=== PATIENT | female | born 1990 | race Caucasian/White ===

== ENCOUNTER 2016-06-10 13:27 | Emergency (ER) | payer MEDICAID ==
[2016-06-10] MEDS ORDERED: ONDANSETRON HCL IV 4 MG/2 ML VIAL IVP ONE (13:59)
[2016-06-10] MEDS ORDERED: HYOSCYAMINE SULFATE ODT 0.125 MG TAB.SUBL SL ONE (13:59)
[2016-06-10] MEDS ORDERED: 0.9 % SODIUM CHLORIDE 1000ML 1,000 ML IV SCH (14:00)
--- NOTE | 2016-06-10 14:04 | Emergency Department Record ---
History of Present Illness - General Chief complaint: Vomiting Stated complaint: VOMITING SINCE THIS MORNING Time Seen by Provider: 06/10/16 13:59 Source: Patient Mode of Arrival: Ambulatory Limitations: No limitations - History of Present Illness Initial comments: 25 yo female presents to ED with a CC of nausea and vomiting symptoms that began this morning upon awakening. Patient denies fevers symptoms, but does reports mild epigastric discomfort. Patient reports several family members with similar symptoms, and patient denies health problems at her baseline. MD complaint: Nausea, Vomiting Onset/Timin -: Hour(s) Description of Vomiting: Bilious, Watery Associated Abdominal Pain: Yes Location: Epigastric Radiation: None Severity: Moderate Severity scale (1-10): 4 Quality: Cramping Consistency: Intermittent Improves with: None Worsens with: None Context: Sick contacts Associated Symptoms: Headaches, Nausea/vomiting - Related Data Previous Rx's Medication Instructions Recorded Ondansetron [Zofran Odt] 4 mg PO Q4H PRN #20 tab.rapdis 06/10/16 Allergies Allergy/AdvReac Type Severity Reaction Status Date / Time No Known Drug Allergies Allergy Verified 06/10/16 13:43 Travel Screening - Travel/Exposure Within Last 30 Days Have you traveled within the last 30 days?: No Review of Systems Constitutional: Denies: Fever, Malaise, Night sweats Eyes: Denies: Eye discharge, Vision change ENT: Denies: Congestion, Ear pain, Epistaxis Respiratory: Denies: Cough, Dyspnea Cardiovascular: Denies: Chest pain, Dyspnea on exertion Endocrine: Denies: Fatigue, Heat or cold intolerance Gastrointestinal: Reports: Nausea, Vomiting. Denies: Abdominal pain, Constipation Genitourinary: Denies: Dysuria, Frequency Musculoskeletal: Denies: Arthralgia, Back pain Skin: Denies: Bruising, Change in color Neurological: Reports: Headache. 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 in 2009) - RESPIRATORY Hx Respiratory Disorders: No - CARDIOVASCULAR Hx Cardio Disorders: No - NEURO Hx Neuro Disorders: No Hx Headaches: Yes (tension ) - GI Hx GI Disorders: No Hx Reflux: Yes - Hx Genitourinary Disorders: No Hx Kidney Stones: Yes (august 08 2013 with stent) Comment:: stents removed September 2013 - ENDOCRINE Hx Endocrine Disorders: No - MUSCULOSKELETAL Hx Musculoskeletal Disorders: No - PSYCH Hx Psych Problems: No - HEMATOLOGY/ONCOLOGY Hx Hematology/Oncology Disorders: No Family Medical History Any Significant Family History?: Yes Hx Cancer: Mother Hx Stroke: Grandparents Physical Exam - General General Appearance: Alert, Oriented x3, Cooperative, Mild distress Limitations: No limitations - Head Head exam: Atraumatic, Normocephalic, Normal inspection Head exam detail: negative: Abrasion, Contusion, Dozier's sign, General tenderness, Hematoma, Laceration - Eye Eye exam: Normal appearance. negative: Conjunctival injection, Periorbital swelling, Periorbital tenderness, Scleral icterus - ENT Ear exam: negative: Auricular hematoma, Auricular trauma Nasal Exam: negative: Active bleeding, Discharge, Dried blood, Foreign body Mouth exam: negative: Drooling, Laceration, Muffled voice, Tongue elevation - Neck Neck exam: Normal inspection. negative: Meningismus, Tenderness - Respiratory Respiratory exam: Normal lung sounds bilaterally. negative: Respiratory distress, Rhonchi, Stridor, Wheezes - Cardiovascular Cardiovascular Exam: Regular rate, Normal rhythm, Normal heart sounds - GI/Abdominal GI/Abdominal exam: Soft, Tenderness (mild TTP epigastric region, no rebound or guarding are present on exam). negative: Distended, Rebound, Rigid - Rectal Rectal exam: Deferred - exam: Deferred - Extremities Extremities exam: Normal inspection. negative: Calf tenderness, Pedal edema, Tenderness - Back Back exam: Reports: Normal inspection. Denies: CVA tenderness (R), CVA tenderness (L) - Neurological Neurological exam: Alert, Oriented X3 - Psychiatric Psychiatric exam: Normal affect, Normal mood - Skin Skin exam: Normal color. negative: Abrasion Type of lesion: negative: abrasion Course Vital Signs 06/10/16 13:38 Temperature 97.5 F L Pulse Rate 95 H Respiratory 20 Rate Blood Pressure 102/70 Pulse Ox 100 - Reevaluation(s) Reevaluation #1: 06/10/16 15:20 Patient up to the bathroom for UA sample, reports that her symptoms are significantly improved. Awaiting AU results to exclude infection, and will reassess. Reevaluation #2: 06/10/16 15:51 UA reviewed and is negative for infection. Patient reports that her symptoms are overall improved, no vomiting while in the ED, denies abdominal pain at this time and repeat abdominal examination is benign. Patient appears stable for discharge at this time. Medical Decision Making - Lab Data Result diagrams: 06/10/16 14:13 06/10/16 14:13 Disposition Disposition: Discharge Clinical Impression: Nausea & vomiting Qualifiers: Vomiting type: unspecified Vomiting Intractability: non-intractable Qualified Code(s): R11.2 - Nausea with vomiting, unspecified Disposition: Home, Self-Care Condition: (2) Stable Instructions: Acute Nausea and Vomiting (ED) Additional Instructions: Return to ED if your symptoms worsen or if you have any concerns. Zofran as directed. Follow-up with your family doctor in 3-5 days as directed. Prescriptions: Ondansetron [Zofran Odt] 4 mg PO Q4H PRN #20 tab.rapdis PRN Reason: Nausea/Vomiting Forms: Patient Portal Access Time of Disposition: 15:53
[2016-06-10 14:32] LABS: HEMATOCRIT 40.1 % (35.0-47.0); HEMOGLOBIN 13.5 gm/dl (11.6-16.0); MEAN CELL VOLUME 88.3 fl (81-97); MEAN CORPUSCULAR HEMOGLOBIN 29.7 pg (27-33); MEAN CORPUSCULAR HGB CONC 33.7 g/dl (32-36); MEAN PLATELET VOLUME 10.4 fl (7.4-10.4); PLATELET COUNT 303 K/uL (130-400); RED BLOOD COUNT 4.54 M/uL (3.80-5.40); RED CELL DISTRIBUTION WIDTH 12.8 % (11.5-14.5); WHITE BLOOD COUNT W/O DIFF 8.4 K/uL (4.2-12.2)
[2016-06-10 14:39] LABS: PLATELET ESTIMATE NORMAL (NORMAL)
[2016-06-10 14:44] LABS: ALB/GLOB RATIO 1.5 (1.1-1.8); ALBUMIN 4.6 gm/dL (3.5-5.0); ALKALINE PHOSPHATASE 72 U/L (38-126); ALT/SGPT 34 U/L (9-52); ANION GAP 15.2 (7-16); AST/SGOT 21 U/L (14-36); BILIRUBIN,TOTAL 0.99 mg/dL (0.2-1.3); BLOOD UREA NITROGEN 13 mg/dL (7-17); CARBON DIOXIDE 23.8 mmol/L (22-30); CREATININE 0.6 mg/dL (0.52-1.04); EST GLOMERULAR FILTRATION RATE > 60 ml/min; GLUCOSE,RANDOM 95 mg/dL (70-110); LIPASE 154 U/L (23-300); TOTAL PROTEIN 7.7 gm/dL (6.3-8.2)
[2016-06-10 15:42] LABS: URINE APPEARANCE CLEAR; URINE BILIRUBIN NEGATIVE (NEGATIVE); URINE BLOOD SMALL (NEGATIVE); URINE COLOR YELLOW; URINE GLUCOSE (UA) NEGATIVE (NEGATIVE); URINE KETONE 40 mg/dL (NEGATIVE); URINE LEUKOCYTE ESTERASE NEGATIVE (NEGATIVE); URINE NITRITE NEGATIVE (NEGATIVE); URINE PROTEIN NEGATIVE (NEGATIVE); URINE UROBILINOGEN 0.2 E.U./dL (0.20 - 1.00)
[2016-06-10 15:49] LABS: URINE WBC NONE SEEN (0-2/hpf)
[2016-06-10 15:50] LABS: HCG,QUALITATIVE URINE NEGATIVE (NEGATIVE); URINE BACTERIA NONE SEEN
== END 2016-06-10 16:07 | disposition home or self-care (01) ==
LOC: ER 13:27
DX: R11.2 Nausea with vomiting, unspecified (principal); R10.13 Epigastric pain; R51 Headache
CPT/HCPCS: 99284 ×2; 96374; 96361; 83690; 80053; 81001; 81025; 85027; J1980; J2405; J7030

== ENCOUNTER 2016-09-08 17:05 | Emergency (ER) | payer BC, MEDICAID ==
--- NOTE | 2016-09-08 18:10 | Emergency Department Record ---
History of Present Illness - General Chief complaint: Female Urogenital Problem Stated complaint: UTI Time Seen by Provider: 09/08/16 18:08 Source: Patient Mode of Arrival: Ambulatory Limitations: No limitations - History of Present Illness Initial comments: The patient is here due to a 4 day hx of dysuria. She denies any AP, nausea, vomiting, or any vaginal issues. The patient has had UTI's like this in the past and this feels the same. MD Complaint: Dysuria Onset/Timin -: Days(s) Severity: Mild, Moderate Severity scale (1-10): 4 Quality: Aching Consistency: Intermittent Worsens with: Urination LMP Date: 08/29/16 Gestational Age (wks) based on LMP: 1 - Related Data Previous Rx's Medication Instructions Recorded Nitrofurantoin [place] [Macrobid] 100 mg PO BID #10 capsule 09/08/16 Allergies Allergy/AdvReac Type Severity Reaction Status Date / Time No Known Drug Allergies Allergy Verified 09/08/16 18:00 Travel Screening - Travel/Exposure Within Last 30 Days Have you traveled within the last 30 days?: No - Travel/Exposure Within Last Year Have you traveled outside the [place] 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 procedure in 2009) - RESPIRATORY Hx Respiratory Disorders: No - CARDIOVASCULAR Hx Cardio Disorders: No - NEURO Hx Neuro Disorders: No Hx Headaches: Yes (tension ) - GI Hx GI Disorders: No Hx Reflux: Yes - Hx Genitourinary Disorders: No Hx Kidney Stones: Yes (august 08 2013 with stent) Comment:: stents removed September 2013 - ENDOCRINE Hx Endocrine Disorders: No - MUSCULOSKELETAL Hx Musculoskeletal Disorders: No - PSYCH Hx Psych Problems: No - HEMATOLOGY/ONCOLOGY Hx Hematology/Oncology Disorders: No Family Medical History Any Significant Family History?: Yes Family Hx Comment (NOT TO BE USED IN PLACE OF ITEMS BELOW): unsure Hx Cancer: Mother Hx Stroke: Grandparents Physical Exam - General General Appearance: Alert, Cooperative, No acute distress - Head Head exam: Atraumatic, Normocephalic, Normal inspection - Eye Eye exam: Normal appearance, PERRL - Respiratory Respiratory exam: Normal lung sounds bilaterally. negative: Respiratory distress - Cardiovascular Cardiovascular Exam: Regular rate, Normal rhythm, Normal heart sounds - GI/Abdominal GI/Abdominal exam: Soft, Normal bowel sounds, Other. negative: Rebound, Rigid, Tenderness - Back Back exam: Denies: CVA tenderness (R), CVA tenderness (L) - Neurological Neurological exam: Alert, Normal gait, Oriented X3, Reflexes normal Course Vital Signs 09/08/16 17:55 Temperature 97.7 F Pulse Rate 83 Respiratory 16 Rate Blood Pressure 110/69 Pulse Ox 99 Disposition Disposition: Discharge Clinical Impression: Cystitis Disposition: Home, Self-Care Condition: (1) Good Instructions: Urinary Tract Infection in Women (ED) Additional Instructions: Please drink plenty of fluids. Take the Macrobid as directed. Please see your PCP for recheck if not better in 3 days. Return to the ER if worse. Prescriptions: Nitrofurantoin [place] [Macrobid] 100 mg PO BID #10 capsule Forms: Patient Portal Access Time of Disposition: 18:28
[2016-09-08 18:12] LABS: URINE APPEARANCE CLEAR; URINE BILIRUBIN NEGATIVE (NEGATIVE); URINE BLOOD SMALL (NEGATIVE); URINE COLOR YELLOW; URINE GLUCOSE (UA) NEGATIVE (NEGATIVE); URINE KETONE NEGATIVE (NEGATIVE); URINE LEUKOCYTE ESTERASE MODERATE (NEGATIVE); URINE NITRITE NEGATIVE (NEGATIVE); URINE PROTEIN NEGATIVE (NEGATIVE); URINE UROBILINOGEN 0.2 E.U./dL (0.20 - 1.00)
[2016-09-08 18:20] LABS: URINE BACTERIA 4+; URINE WBC >50 (0-2/hpf)
[2016-09-08] MEDS ORDERED: NITROFURANTOIN MONO 100 MG CAPSULE PO ONE (18:28)
== END 2016-09-08 18:39 | disposition home or self-care (01) ==
LOC: ER 17:05
DX: N30.01 Acute cystitis with hematuria (principal)
CPT/HCPCS: 81001; 81025; 99282

== ENCOUNTER 2017-03-16 15:22 | Emergency (ER) | payer BC, MEDICAID ==
--- NOTE | 2017-03-16 16:12 | Emergency Department Record ---
History of Present Illness - General Chief complaint: Cold Stated complaint: COLD/CHEST CONGESTION Time Seen by Provider: 03/16/17 16:11 Source: Patient Mode of Arrival: Ambulatory - History of Present Illness Initial comments: The patient states she has had 4 days of congestion greenish from her sinuses, with sinus pressure, and facial headache. She has had post nasal drip, and now has a cough which is also greenish. She denies history of pneumonia, asthma, smoking. She denies rashes, stiff neck, chest pain(except with coughing), abdominal pain or urinary symptoms. Onset/Timin -: Days(s) Severity: Moderate Improves with: None Worsens with: None Associated Symptoms: Cough, Rhinorrhea, Sore throat - Related Data Previous Rx's Medication Instructions Recorded Azithromycin [Zithromax] 500 mg PO DAILY #10 tab 03/16/17 Allergies Allergy/AdvReac Type Severity Reaction Status Date / Time No Known Drug Allergies Allergy Verified 03/16/17 15:56 Travel Screening - Travel/Exposure Within Last 30 Days Have you traveled within the last 30 days?: No - Travel/Exposure Within Last Year Have you traveled outside the [place] in the last year?: No - Additonal Travel Details Have you been exposed to anyone with a communicable illness?: No - Travel Symptoms Symptom Screening: None Review of Systems Reviewed: No additional complaints except as noted below Constitutional: Reports: As per HPI. Denies: Chills, Fever, Malaise, Night sweats, Weakness, Weight change Eyes: Reports: As per HPI. Denies: Eye discharge, Eye pain, Photophobia, Vision change ENT: Reports: As per HPI. Denies: Congestion, Dental pain, Ear pain, Epistaxis , Hearing loss, Throat pain Respiratory: Reports: As per HPI. Denies: Cough, Dyspnea, Hemoptysis, Stridor, Wheezes Cardiovascular: Reports: As per HPI. Denies: Arrhythmia, Chest pain, Dyspnea on exertion, Edema, Murmurs, Orthopnea, Palpitations, Paroxysmal nocturnal dyspnea, Rheumatic Fever, Syncope Endocrine: Reports: As per HPI. Denies: Fatigue, Heat or cold intolerance, Polydipsia, Polyuria Gastrointestinal: Reports: As per HPI. Denies: Abdominal pain, Constipation, Diarrhea, Hematemesis, Hematochezia, Melena, Nausea, Vomiting Genitourinary: Reports: As per HPI. Denies: Abnormal menses, Discharge, Dyspareunia, Dysuria, Frequency, Hematuria, Incontinence, Retention, Urgency Musculoskeletal: Reports: As per HPI. Denies: Arthralgia, Back pain, Gout, Joint swelling, Myalgia, Neck pain Skin: Reports: As per HPI. Denies: Bruising, Change in color, Change in hair/ nails, Lesions, Pruritus, Rash Neurological: Reports: As per HPI. Denies: Abnormal gait, Confusion, Headache, Numbness, Paresthesias, Seizure, Tingling, Tremors, Vertigo, Weakness Psychiatric: Reports: As per HPI. Denies: Anxiety, Auditory hallucinations, Depression, Homicidal thoughts, Suicidal thoughts, Visual hallucinations Hematological/Lymphatic: Reports: As per HPI. 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) - RESPIRATORY Hx Respiratory Disorders: No - CARDIOVASCULAR Hx Cardio Disorders: No - NEURO Hx Neuro Disorders: No Hx Headaches: Yes (tension ) - GI Hx GI Disorders: No Hx Reflux: Yes - Hx Genitourinary Disorders: No Hx Kidney Stones: Yes (august 08 2013 with stent) Comment:: stents removed September 2013 - ENDOCRINE Hx Endocrine Disorders: No - MUSCULOSKELETAL Hx Musculoskeletal Disorders: No - PSYCH Hx Psych Problems: No - HEMATOLOGY/ONCOLOGY Hx Hematology/Oncology Disorders: No Family Medical History Any Significant Family History?: Yes Family Hx Comment (NOT TO BE USED IN PLACE OF ITEMS BELOW): unsure Hx Cancer: Mother Hx Stroke: Grandparents Physical Exam - General General Appearance: Alert, Oriented x3, Cooperative, No acute distress (raspy voice, congested) - Head Head exam: Normal inspection - Eye Eye exam: Normal appearance, PERRL, EOMI Pupils: Normal accommodation - ENT ENT exam: Normal exam, Mucous membranes moist, Normal external ear exam, Normal orophraynx, TM's normal bilaterally Ear exam: Normal external inspection. negative: External canal tenderness Nasal Exam: Normal inspection, Sinus tenderness. negative: Active bleeding, Discharge, Dried blood Mouth exam: Normal external inspection, Tongue normal Teeth exam: Normal inspection. negative: Dental caries Throat exam: Normal inspection. negative: Tonsillar erythema, Tonsillar exudate - Neck Neck exam: Normal inspection, Full ROM. negative: Lymphadenopathy, Meningismus , Tenderness - Respiratory Respiratory exam: Normal lung sounds bilaterally. negative: Respiratory distress - Cardiovascular Cardiovascular Exam: Regular rate, Normal rhythm, Normal heart sounds - GI/Abdominal GI/Abdominal exam: Soft, Normal bowel sounds. negative: Tenderness - Rectal Rectal exam: Deferred - exam: Deferred - Extremities Extremities exam: Normal inspection, Full ROM, Normal capillary refill. negative: Tenderness - Back Back exam: Reports: Normal inspection, Full ROM. Denies: Muscle spasm, Rash noted, Tenderness - Neurological Neurological exam: Alert, Normal gait, Oriented X3, Reflexes normal - Psychiatric Psychiatric exam: Normal affect, Normal mood - Skin Skin exam: Dry, Intact, Normal color, Warm Course Vital Signs 03/16/17 15:56 Temperature 99.2 F Pulse Rate 95 H Respiratory 18 Rate Blood Pressure 125/76 Pulse Ox 98 - Reevaluation(s) Reevaluation #1: Explained need for high dose and llonger duration of antibiotics. Patient understands. 03/16/17 16:51 Medical Decision Making - Management Options MDM Management: No Additional Work-up Planned Disposition Disposition: Discharge Clinical Impression: Sinusitis Qualifiers: Sinusitis location: pansinusitis Chronicity: acute Recurrence: not specified as recurrent Qualified Code(s): J01.40 - Acute pansinusitis, unspecified Disposition: Home, Self-Care Condition: (1) Good Instructions: Sinusitis (ED) Additional Instructions: Take antibiotics as directed with food until gone. tylenol or ibufrofen as directed as needed for fevers, pain. Off work tomorrow. Follow up [facility] PCP as needed. Prescriptions: Azithromycin [Zithromax] 500 mg PO DAILY #10 tab Quality - Quality Measures Quality Measures: N/A - Blood Pressure Screening Does Patient Have Any of the Following: No Blood Pressure Classification: Pre-Hypertensive BP Reading Systolic Measurement: 125 Diastolic Measurement: 76 Screening for High Blood Pressure: < Normal BP, F/U Not Required > [G8783]
== END 2017-03-16 16:40 | disposition home or self-care (01) ==
LOC: ER 15:22
DX: J01.40 Acute pansinusitis, unspecified (principal); R05 Cough
CPT/HCPCS: 99282

== ENCOUNTER 2017-07-18 08:10 | Emergency (ER) | payer BC, MEDICAID ==
[2017-07-18] MEDS ORDERED: 0.9 % SODIUM CHLORIDE 1,000 ML BAG IV ONE (08:19)
[2017-07-18] MEDS ORDERED: CLINDAMYCIN 150 MG CAP PO ONE (08:25)
--- NOTE | 2017-07-18 08:29 | Emergency Department Record ---
History of Present Illness - General Chief complaint: Abscess Stated complaint: SORE ON RIGHT BUTTOCK Time Seen by Provider: 07/18/17 08:19 Source: Patient Mode of Arrival: Ambulatory Limitations: No limitations - History of Present Illness Initial comments: The patient is here due to developing an infection to her L buttock. It started 3 days ago and now seems to be getting smaller but more painful. complaint: Abscess/boil Onset/Timin -: Days(s) Location: Buttocks Severity: Severe Severity scale (1-10): 9 Quality: Aching Consistency: Constant Improves with: None Worsens with: None Context: None Associated symptoms: Denies other symptoms Treatments Prior to Arrival: None - Related Data Home Medications Medication Instructions Recorded Confirmed Last Taken Propranolol HCl [Inderal Xl] 80 mg PO ASDIR 07/18/17 07/18/17 Unknown Previous Rx's Medication Instructions Recorded Clindamycin HCl [Cleocin HCl] 300 mg PO QID #28 capsule 07/18/17 Allergies Allergy/AdvReac Type Severity Reaction Status Date / Time No Known Drug Allergies Allergy Verified 07/18/17 08:15 Travel Screening - Travel/Exposure Within Last 30 Days Have you traveled within the last 30 days?: No Review of Systems Constitutional: Denies: Chills, Fever Past Medical History - SOCIAL HISTORY Smoking Status: Never smoker Alcohol Use: None 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 procedure in 2009) - RESPIRATORY Hx Respiratory Disorders: No - CARDIOVASCULAR Hx Cardio Disorders: No - NEURO Hx Neuro Disorders: No Hx Headaches: Yes (tension ) - GI Hx GI Disorders: No Hx Reflux: Yes - Hx Genitourinary Disorders: No Hx Kidney Stones: Yes (august 08 2013 with stent) Comment:: stents removed September 2013 - ENDOCRINE Hx Endocrine Disorders: No - MUSCULOSKELETAL Hx Musculoskeletal Disorders: No - PSYCH Hx Psych Problems: Yes Hx Anxiety: Yes - HEMATOLOGY/ONCOLOGY Hx Hematology/Oncology Disorders: No Family Medical History Any Significant Family History?: Yes Family Hx Comment (NOT TO BE USED IN PLACE OF ITEMS BELOW): unsure Hx Cancer: Mother Hx Stroke: Grandparents Physical Exam - General General Appearance: Alert, Cooperative, No acute distress - Head Head exam: Atraumatic, Normocephalic - Eye Eye exam: Normal appearance, PERRL - Rectal Rectal exam: Tenderness (There is a 3x3 cm area of erythema and induration to the R buttock. The area is very hard and NOT fluctuant. It does not appear to be very deep. ) - Extremities Extremities exam: Normal inspection, Full ROM, Normal capillary refill. negative: Tenderness Course Vital Signs 07/18/17 08:12 Temperature 97.9 F Pulse Rate 91 H Respiratory 18 Rate Blood Pressure 107/76 Pulse Ox 99 - Reevaluation(s) Reevaluation #1: I explained to the patient that it appears she has a superficial local infection to the R buttock. At this time it does not appear to need to be I and D'd. We will start the patient on oral Clindamycin and have her use warm compresses frequently. 07/18/17 08:27 Disposition Disposition: Discharge Clinical Impression: Skin infection Disposition: Home, Self-Care Condition: (2) Stable Instructions: Abscess (ED) Additional Instructions: Please use the Clindamycin and use warm compresses on the affected area when possible. Please return to the ER in 1-2 days for recheck and possible I and D. Return sooner for any increased pain, fever, or swelling. Prescriptions: Clindamycin HCl [Cleocin HCl] 300 mg PO QID #28 capsule Time of Disposition: 08:29 Quality - Quality Measures Quality Measures: N/A - Blood Pressure Screening View Details: Yes Does Patient Have Any of the Following: No Blood Pressure Classification: Normal BP Reading Systolic Measurement: 107 Diastolic Measurement: 76 Screening for High Blood Pressure: < Normal BP, F/U Not Required > [G8783]
== END 2017-07-18 08:42 | disposition home or self-care (01) ==
LOC: ER 08:10
DX: L08.9 Local infection of the skin and subcutaneous tissue, unspecified (principal)
CPT/HCPCS: 99282

== ENCOUNTER 2018-12-02 04:47 | Emergency (ER) | payer BC, MEDICAID ==
[2018-12-02] MEDS ORDERED: KETOROLAC 60 MG/2 ML VIAL IM STA (05:00)
--- NOTE | 2018-12-02 05:04 | Emergency Department Record ---
History of Present Illness - General Chief Complaint: Back Pain/Injury Stated Complaint: BACK PAIN Time Seen by Provider: 12/02/18 05:00 Source: Patient Mode of Arrival: Ambulatory Limitations: No limitations - History of Present Illness Initial Comments: 27 yo female presents to ED for evaluation of mid-upper back pain symptoms that began two days ago after moving heavy items throughout the weekend. Patient denies fevers, chills, abdominal pain, or urinary symptoms. Patient reports that she has not taken anything for her pain symptoms prior to arrival. MD Complaint: Back pain Onset/Timin -: Days(s) Similar Symptoms Previously: No Place: Home Radiation: Right leg Severity: Moderate Severity scale (1-10): 8 Quality: Aching, Dull, Sharp Consistency: Constant Improves With: None Worsens With: None Context: While lifting Associated Symptoms: Denies other symptoms - Related Data Allergies Allergy/AdvReac Type Severity Reaction Status Date / Time No Known Drug Allergies Allergy Verified 12/02/18 04:52 Travel Screening - Travel/Exposure Within Last 30 Days Have you traveled within the last 30 days?: No Review of Systems Constitutional: Denies: Chills, Fever, Malaise, Night sweats Eyes: Denies: Eye discharge, Eye pain ENT: Denies: Congestion, Ear pain, Epistaxis Respiratory: Denies: Cough, Dyspnea Cardiovascular: Denies: Chest pain, Dyspnea on exertion Endocrine: Denies: Fatigue, Heat or cold intolerance Gastrointestinal: Denies: Abdominal pain, Nausea, Vomiting Genitourinary: Denies: Incontinence, Retention Musculoskeletal: Reports: Back pain. 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 LEEP procedure in 2009) - RESPIRATORY Hx Respiratory Disorders: No - CARDIOVASCULAR Hx Cardio Disorders: No - NEURO Hx Neuro Disorders: No Hx Headaches: Yes (tension ) - GI Hx GI Disorders: No Hx Reflux: Yes - Hx Genitourinary Disorders: No Hx Kidney Stones: Yes (august 08 2013 with stent) Comment:: stents removed September 2013 - ENDOCRINE Hx Endocrine Disorders: No - MUSCULOSKELETAL Hx Musculoskeletal Disorders: No - PSYCH Hx Psych Problems: Yes Hx Anxiety: Yes - HEMATOLOGY/ONCOLOGY Hx Hematology/Oncology Disorders: No Family Medical History Any Significant Family History?: Yes Family Hx Comment (NOT TO BE USED IN PLACE OF ITEMS BELOW): unsure Hx Cancer: Mother Hx Stroke: Grandparents Physical Exam - General General Appearance: Alert, Oriented x3, Cooperative, Mild distress Limitations: No limitations - Head Head exam: Atraumatic, Normocephalic, Normal inspection Head exam detail: negative: Abrasion, Contusion, Dozier's sign, General tenderness, Hematoma, Laceration - Eye Eye exam: Normal appearance. negative: Conjunctival injection, Periorbital swelling, Periorbital tenderness, Scleral icterus - ENT Ear exam: negative: Auricular hematoma, Auricular trauma Nasal Exam: negative: Active bleeding, Discharge, Dried blood, Foreign body Mouth exam: negative: Drooling, Laceration, Muffled voice, Tongue elevation - Neck Neck exam: Normal inspection. negative: Meningismus, Tenderness - Respiratory Respiratory exam: Normal lung sounds bilaterally. negative: Rales, Respiratory distress, Rhonchi, Stridor - Cardiovascular Cardiovascular Exam: Regular rate, Normal rhythm, Normal heart sounds - GI/Abdominal GI/Abdominal exam: Soft. negative: Rebound, Rigid, Tenderness - Rectal Rectal exam: Deferred - exam: Deferred - Extremities Extremities exam: Normal inspection. negative: Tenderness - Back Back exam: Reports: Paraspinal tenderness (Upper thoracic spine). Denies: CVA tenderness (R), CVA tenderness (L) - Neurological Neurological exam: Alert, Normal gait, Oriented X3 - Psychiatric Psychiatric exam: Normal affect, Normal mood - Skin Skin exam: Normal color. negative: Abrasion Type of lesion: negative: abrasion Course Vital Signs 12/02/18 04:57 Temperature 98.1 F Pulse Rate [ 85 Left] Respiratory 16 Rate Blood Pressure 102/68 [Left] Pulse Ox 100 - Reevaluation(s) Reevaluation #1: 12/02/18 06:08 Patient was reassessed, reports that her pain symptoms are significantly improved. Patient appears stable for discharge at this time. Disposition Disposition: Discharge Clinical Impression: Acute thoracic myofascial strain Qualifiers: Encounter type: initial encounter Qualified Code(s): S29.019A - Strain of muscle and tendon of unspecified wall of thorax, initial encounter Disposition: Home, Self-Care Condition: (2) Stable Instructions: Thoracic Back Strain (ED) Additional Instructions: Return to ED if your symptoms worsen or if you have any concerns. Ibuprofen as directed. Follow-up with your family doctor in 3-5 days as directed. Forms: Patient Portal Access Time of Disposition: 06:08 Quality - Quality Measures Quality Measures: N/A - Blood Pressure Screening Does Patient Have Any of the Following: No Blood Pressure Classification: Normal BP Reading Systolic Measurement: 102 Diastolic Measurement: 68 Screening for High Blood Pressure: < Normal BP, F/U Not Required > [G8783]
== END 2018-12-02 06:14 | disposition home or self-care (01) ==
LOC: ER 04:47
DX: S29.019A Strain of muscle and tendon of unspecified wall of thorax, initial encounter (principal); X50.9XXA Other and unspecified overexertion or strenuous movements or postures, initial encounter; Y92.009 Unspecified place in unspecified non-institutional (private) residence as the place of occurrence of the external cause
CPT/HCPCS: 96372; 99283; J1885

== ENCOUNTER 2019-04-28 05:31 | Emergency (ER) | payer BC ==
--- NOTE | 2019-04-28 05:51 | Emergency Department Record ---
History of Present Illness - General Chief Complaint: Fever Stated Complaint: FEVER Time Seen by Provider: 04/28/19 05:44 Source: Patient Mode of Arrival: Ambulatory Limitations: No limitations - History of Present Illness Initial Comments: 28 yo female presents to ED for evaluation of fever symptoms, nausea, and vomiting for the past several days. Patient reports that her nausea/vomiting symptoms began last night. Patient denies receiving an influenza vaccination this year, reports taking Tylenol and Ibuprofen for her fever symptoms. Patient denies health problems at her baseline. Patient does report that her children were diagnosed positive for influenza last week. MD Complaint: Fever Onset/Timin -: Days(s) Temperature Source: Oral Associated Symptoms: Vomiting, Myalgias, Sore throat Treatments Prior to Arrival: Acetaminophen - Related Data Previous Rx's Medication Instructions Recorded Ondansetron [Zofran Odt] 4 mg PO Q6H PRN #15 tab.rapdis 04/28/19 Allergies Allergy/AdvReac Type Severity Reaction Status Date / Time No Known Drug Allergies Allergy Verified 12/02/18 04:52 Travel Screening - Travel/Exposure Within Last 30 Days Have you traveled within the last 30 days?: No - Travel/Exposure Within Last Year Have you traveled outside the [place] in the last year?: No - Additonal Travel Details Have you been exposed to anyone with a communicable illness?: No - Travel Symptoms Symptom Screening: Fever (GT 100.4), Joint & Muscle Aches Review of Systems Constitutional: Reports: Fever. Denies: Chills, Malaise, Night sweats Eyes: Denies: Eye discharge, Eye pain ENT: Denies: Congestion, Ear pain, Epistaxis Respiratory: Reports: Cough. Denies: Dyspnea Cardiovascular: Denies: Chest pain, Dyspnea on exertion Endocrine: Denies: Fatigue, Heat or cold intolerance Gastrointestinal: Reports: Nausea, Vomiting. Denies: Abdominal pain, Constipation Genitourinary: Denies: Incontinence, Retention Musculoskeletal: Reports: Myalgia. 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 LEEP procedure in 2010) - RESPIRATORY Hx Respiratory Disorders: No - CARDIOVASCULAR Hx Cardio Disorders: No - NEURO Hx Neuro Disorders: No Hx Headaches: Yes (tension ) - GI Hx GI Disorders: No Hx Reflux: Yes - Hx Genitourinary Disorders: No Hx Kidney Stones: Yes (august 08 2013 with stent) Comment:: stents removed September 2013 - ENDOCRINE Hx Endocrine Disorders: No - MUSCULOSKELETAL Hx Musculoskeletal Disorders: No - PSYCH Hx Psych Problems: Yes Hx Anxiety: Yes - HEMATOLOGY/ONCOLOGY Hx Hematology/Oncology Disorders: No Family Medical History Any Significant Family History?: No Family Hx Comment (NOT TO BE USED IN PLACE OF ITEMS BELOW): unsure Hx Cancer: Mother Hx Stroke: Grandparents Physical Exam - General General Appearance: Alert, Oriented x3, Cooperative, Mild distress Limitations: No limitations - Head Head exam: Atraumatic, Normocephalic, Normal inspection Head exam detail: negative: Abrasion, Contusion, Dozier's sign, General tenderness, Hematoma, Laceration - Eye Eye exam: Normal appearance. negative: Conjunctival injection, Periorbital swelling, Periorbital tenderness, Scleral icterus - ENT Ear exam: negative: Auricular hematoma, Auricular trauma Nasal Exam: negative: Active bleeding, Discharge, Dried blood, Foreign body Mouth exam: negative: Drooling, Laceration, Muffled voice, Tongue elevation - Neck Neck exam: Normal inspection. negative: Meningismus, Tenderness - Respiratory Respiratory exam: Normal lung sounds bilaterally. negative: Rales, Respiratory distress, Rhonchi, Stridor - Cardiovascular Cardiovascular Exam: Normal rhythm, Normal heart sounds, Tachycardia - GI/Abdominal GI/Abdominal exam: Soft. negative: Rebound, Rigid, Tenderness - Rectal Rectal exam: Deferred - exam: Deferred - Extremities Extremities exam: Normal inspection. negative: Pedal edema, Tenderness - Back Back exam: Denies: CVA tenderness (R), CVA tenderness (L) - Neurological Neurological exam: Alert, Normal gait, Oriented X3 - Psychiatric Psychiatric exam: Normal affect, Normal mood - Skin Skin exam: Normal color. negative: Abrasion Type of lesion: negative: abrasion Course Vital Signs 04/28/19 05:34 Temperature 101.8 F H Pulse Rate 146 H Respiratory 20 Rate Blood Pressure 95/66 Pulse Ox 98 - Reevaluation(s) Reevaluation #1: 04/28/19 06:18 Influenza appears negative Patient was updated on her result Symptoms appear c/w viral syndrome with nausea/vomiting Will treat nausea/vomiting symptoms with Zofran as directed. Disposition Disposition: Discharge Clinical Impression: Fever Qualifiers: Fever type: unspecified Qualified Code(s): R50.9 - Fever, unspecified Nausea & vomiting Qualifiers: Vomiting type: unspecified Vomiting Intractability: non-intractable Qualified Code(s): R11.2 - Nausea with vomiting, unspecified Disposition: Home, Self-Care Condition: (2) Stable Instructions: Fever in Adults (ED) Additional Instructions: Return to ED if your symptoms worsen or if you have any concerns. Tylenol, Motrin, and Zofran as directed. Follow-up with your family doctor in 3-5 days as directed. Prescriptions: Ondansetron [Zofran Odt] 4 mg PO Q6H PRN #15 tab.rapdis PRN Reason: Nausea/Vomiting Forms: Patient Portal Access Time of Disposition: 06:19 Quality - Quality Measures Quality Measures: N/A - Blood Pressure Screening Does Patient Have Any of the Following: No Blood Pressure Classification: Normal BP Reading Systolic Measurement: 95 Diastolic Measurement: 66 Screening for High Blood Pressure: < Normal BP, F/U Not Required > [G8783]
[2019-04-28] MEDS: ONDANSETRON 4 MG ODT TABLET SL ONE (05:57)
[2019-04-28] MEDS: IBUPROFEN 400 MG TABLET PO ONE (05:57)
[2019-04-28 06:15] LABS: INFLUENZA A NEGATIVE (NEGATIVE); INFLUENZA B NEGATIVE (NEGATIVE)
== END 2019-04-28 06:37 | disposition home or self-care (01) ==
LOC: ER 05:31
DX: R50.9 Fever, unspecified (principal); R11.2 Nausea with vomiting, unspecified
CPT/HCPCS: 87400; 99283